=== PATIENT | female | born 1965 | race Caucasian/White ===

== ENCOUNTER → 2023-05-09 16:35 | Outpatient (REF) | payer BC, SELFPAY ==
[2023-05-09 17:29] LABS: % Basophils 0.4 % (0-2); % Eosinophils 0.2 % (0-6); % Immature Granulocytes 0.4 % (0-0.5); % Lymphocytes 25.1 % (20.5-51.1); % Monocytes 7.2 % (1.7-9.3); % Neutrophils 66.7 % (42.2-75.2); Absolute Lymphocytes 1.3 10^3/uL (1.2-3.4); Absolute Monocytes 0.4 10^3/uL (0.1-0.6); Absolute Neutrophils 3.3 10^3/uL (1.4-6.5); Hematocrit 40.2 % (37.0-47.0); Hemoglobin 13.4 g/dL (12.0-16.0); Mean Corp Hgb Conc. 33.3 g/dL (33.0-37.0); Mean Corpuscular Hgb 29.6 pg (27.0-31.0); Mean Corpuscular Volume 88.7 fL (81.0-99.0); Mean Platelet Volume 11.3 fL (7.4-10.4); Nucleated Red Blood Cells % 0 %; Platelet Count 242 10^3/uL (130-400); Red Blood Cell Count 4.53 10^6/uL (4.20-5.40); Red Cell Dist. Width 12.6 % (11.5-14.5)
[2023-05-09 17:37] LABS: D-Dimer 0.32 ug/mlFEU (0.00-0.50); Erythrocyte Sed Rate 13 mm/hour (0-20)
[2023-05-09 17:50] LABS: ALT (SGPT) 23 U/L (0-35); AST (SGOT) 29 U/L (14-36); Albumin 4.9 g/dl (3.5-5.0); Alkaline Phosphatase 61 U/L (38-126); Blood Urea Nitrogen 17 mg/dl (7-17); Calcium 10.4 mg/dl (8.4-10.2); Carbon Dioxide 28 mmol/L (22-30); Chloride 99 mmol/L (98-107); Glucose 96 mg/dl (70-99); Potassium 4.5 mmol/L (3.5-5.1); Sodium 137 mmol/L (135-145); Total Bilirubin 0.5 mg/dl (0.2-1.3); Total Protein 7.6 g/dl (6.3-8.2); eGFR > 60.00
== END ==
LOC: REG 16:35
PROVIDERS: ATTENDING PHYSICIAN Family Medicine
DX: R07.81 Pleurodynia (principal)
CPT/HCPCS: 36415; 71101; 80053; 85025; 85379; 85652

== ENCOUNTER → 2023-05-29 15:31 | Outpatient (REF) | payer BC, SELFPAY | LOC: RAD 15:31 | PROVIDERS: ATTENDING PHYSICIAN Family Medicine | DX: R07.9 Chest pain, unspecified (principal); M54.9 Dorsalgia, unspecified | CPT/HCPCS: 71250 ==

== ENCOUNTER → 2023-06-22 06:45 | Outpatient (REF) | payer BC, SELFPAY | LOC: MRI 3T 06:45 | PROVIDERS: ATTENDING PHYSICIAN Family Medicine | DX: M54.9 Dorsalgia, unspecified (principal); M54.12 Radiculopathy, cervical region | CPT/HCPCS: 72141; 72146 ==

== ENCOUNTER 2023-11-07 12:04 | Emergency (ER) | payer BC, SELFPAY ==
[2023-11-07 12:07] VITALS: BP 120/72
--- NOTE | 2023-11-07 12:51 | ED.GENMED ---
History of Present Illness
General
Chief Complaint: Musculo-Skeletal Complaint
Source: patient
Exam Limitations: none
Time Seen by Provider: 11/07/23 12:30
Nursing documentation reviewed up to this point in time: agreed with
History of Present Illness
History of Present Illness:
58-year-old female with a past medical history of hyperlipidemia presenting emergency department today with concerns of left lateral ankle pain. Patient states that this morning she was getting out of bed at around 3 or 4 AM this morning to use the
bathroom. Patient reports that when she was going back to bed, she turned off the lights and when she was trying to get back to her bed, she tripped twisted her ankle and fell. Patient states that she did not hit her head when she fell. Patient not
lose consciousness. Patient denies any other injuries, denies any upper extremity pain, denies any chest pain or shortness of breath. Denies any neck pain. Patient states that she is not able to bear weight on that side.
Past History
Past History
ED Past Medical History: None
ED Past Surgical History: None
Review of Systems
Review of Systems
All Other Systems: ROS reviewed and negative except as documented in HPI and ROS
Phy Exam
Physical Exam
Physical Exam:
General: Patient is well appearing and in no acute distress; non-toxic
Skin: Warm and dry, no rashes or lesions
Head: Normocephalic, atraumatic
Eyes: Sclera non-icteric. EOMs intact. PERRLA.
Cardiac: Regular rate
Peripheral Vascular: 2+ dorsalis pedis and posterior tibial pulses on the left
Pulm: Normal respiratory effort
Abdomen: No abdominal tenderness
Musculoskeletal: Swelling surrounding lateral malleolus with tenderness to palpation. No proximal fibular tenderness.
Neuro: CN II-XII intact, no focal neurologic deficits. Sensation intact.
Psychiatric: Appropriate mood and affect.
Course
Orders/Labs/Results
Orders:
Orders
11/07/23 12:11
CR Ankle - Left Min 3 Views Urgent
Comment:
Reason For Exam: injury, pain
11/07/23 12:49
Ibuprofen [Motrin] 600 mg PO NOW STA
Vital Signs
Initial and Last Documented VS:
Initial Vital Signs
Temp Pulse Resp BP Pulse Ox
97.6 F 80 16 120/72 99
11/07/23 12:07 11/07/23 12:07 11/07/23 12:07 11/07/23 12:07 11/07/23 12:07
Last Documented Vital Signs
Temp Pulse Resp BP Pulse Ox
97.6 F 80 16 120/72 99
11/07/23 12:07 11/07/23 12:07 11/07/23 12:07 11/07/23 12:07 11/07/23 12:07
Procedures
Splinting/Sling Placement
Left Ankle:
Procedure completed by: Vandana Joel PA-C, instrumentation tech
Pre-splint extermity exam: neurovascular intact
Type of splint: posterior short leg
Splint material: fiberglass
Splint checked by provider?: Yes
Normal distal neurovascular exam?: Yes
MDM/Problems Addressed
Differential Diagnosis Includes:
Deltoid ligament sprain/strain, anterior talofibular ligament sprain/strain, distal tibia fracture, distal fibula fracture
MDM/Problems Addressed:
58-year-old female presents emergency department following a trip and fall early this morning when she is getting up to use the bathroom. She has not able to bear weight on the left foot. She was found to have a distal fibula fracture on the left
with minimal displacement. She has no proximal fibular tenderness tenderness. She has swelling noted around the ankle. She was placed in a U short leg splint with posterior support. She is given ibuprofen for pain control. Patient saw
Amador in the past for hand surgery and would like to see him again, I did contact him however he mainly does upper extremities. Did contact [facility] medical management specialist he will see patient in a few days. Patient likely need surgery.
Patient states that she is unable to ambulate with crutches due to previous breast surgery, however she states that her is retired and will help her ambulate at home, I did write a prescription for a wheelchair. I did offer patient for
possible transfer to skilled rehab in the meantime so help with ambulation however patient declines this. Patient stable for discharge.
Chronic conditions affecting care:
Hyperlipidemia
Acute Exacerbation and/or Progression of Chronic Illness:
N/A
*Pulse Oximetry
Patient hypoxic: no
*Critical Care Note
Total Time (30-74mins, 75-104mins- exclusive of procedures): Not Applicable
Data Reviewed
Review of Other/Old Records Reveals: Records (Reviewed ER physician documentation from 07/25/2020)
Source: patient and records
Prescriptions/Medications Considered But Not Given:
Considered oxycodone and Percocet for pain control however patient states that she would rather use Tylenol Motrin
Patient Management
Escalation/DeEscalation of care consider admission/obs:
Admit not indicated, patient stable for discharge, reviewed case with my attending
ED Attending Note
-
Portions of this chart may have been created with voice recognition software.� Occasional wrong word or��sound alike� substitutions may have occurred due to the inherent limitations of voice recognition software.
Discharge Plan
Departure
Patient Disposition: Home (Routine Discharge)
Date of Disposition: 11/07/23
Time of Disposition: 14:33
Patient with high blood pressure during this ER visit?: No
Condition: Good
Discharge Problem:
Fracture of distal end of fibula
Instructions: Lower leg fracture, Splint Care
Prescriptions:
No Action
dextroamphetamine-amphetamine [Adderall XR] 30 MG capsule,extended release 24hr
30 mg PO DAILY
rosuvastatin 5 MG tablet
5 mg PO QPM
acetaminophen 325 MG tablet
650 mg PO Q4HPRN PRN (Reason: mild pain or temp > 100.4 F) 0RF
oxycodone 10 MG tablet
10 mg PO Q6HPRN PRN (Reason: mod sev pain) Qty: 15 0RF
vancomycin in 0.9 % sodium chl 1 GRAM/200 ML piggyback
1 g IV Q12H 0RF
Rx Instructions:
FOR CHARTING PURPOSE ONLY
Last dose on 08/13/20
naproxen 375 MG tablet
375 mg PO TID PRN (Reason: Breakthrough pain) Qty: 15 0RF
Rx Instructions:
Breakthrough afte using oxycodone.
amoxicillin-pot clavulanate 1 TABLET tablet
1 tab PO TID Qty: 42 0RF
Referrals:
Cristofer Candelaria DO [Family Provider] -
Rip Smart MD [Active] - Call in 1-3 days for appt
Activity Restrictions/Additional Instructions:
Please try to avoid weightbearing on the left foot. Please keep the splint in place until you see the orthopedist. Please do not get the splint wet.
Please call the attached number to schedule appointment with Dr. Smart's office with [facility].
Please return emergency department should you experience any acute worsening of your pain, loss of sensation in your lower extremity, pallor, or any other signs or symptoms concerning to you.
Interventions
Interventions:
*Risk Screen - Suicide Last Done: 11/07/23 12:07
*General Assessment Last Done: 11/07/23 12:07
*Neglect/Abuse Screening Last Done: 11/07/23 12:07
ED- Fall Risk Assessment Last Done: 11/07/23 15:30
*ED COVID-19 Vaccine History Last Done: 11/07/23 12:07
*Nursing Disposition Last Done: 11/07/23 15:31
ED-Musculoskeletal Assessment Last Done: 11/07/23 13:13
Discharge Date and Time
Discharge Date/Time: 11/07/23 15:34
Print Language: GUATEMALAN
[2023-11-07] MEDS: MOTRIN 600 MG PO (13:08)
== END 2023-11-07 15:34 | disposition home or self-care (01) ==
LOC: EMR 12:04
PROVIDERS: EMERGENCY PHYSICIAN Student in an Organized Health Care Education/Training Program; FAMILY PHYSICIAN Family Medicine
DX: S82.832A Other fracture of upper and lower end of left fibula, initial encounter for closed fracture (principal); W01.0XXA Fall on same level from slipping, tripping and stumbling without subsequent striking against object, initial encounter; E78.5 Hyperlipidemia, unspecified
CPT/HCPCS: 99283; 29515; 73610

== ENCOUNTER → 2023-11-10 09:39 | Outpatient (REF) | payer BC, SELFPAY ==
[2023-11-10 11:24] LABS: % Basophils 0.2 % (0-2); % Eosinophils 0.8 % (0-6); % Immature Granulocytes 0.2 % (0-0.5); % Lymphocytes 31.9 % (20.5-51.1); % Monocytes 8.4 % (1.7-9.3); % Neutrophils 58.5 % (42.2-75.2); Absolute Lymphocytes 1.5 10^3/uL (1.2-3.4); Absolute Monocytes 0.4 10^3/uL (0.1-0.6); Absolute Neutrophils 2.8 10^3/uL (1.4-6.5); Hematocrit 37.3 % (37.0-47.0); Hemoglobin 12.6 g/dL (12.0-16.0); Mean Corp Hgb Conc. 33.8 g/dL (33.0-37.0); Mean Corpuscular Hgb 29.5 pg (27.0-31.0); Mean Corpuscular Volume 87.4 fL (81.0-99.0); Mean Platelet Volume 11.3 fL (7.4-10.4); Nucleated Red Blood Cells % 0 %; Platelet Count 260 10^3/uL (130-400); Red Blood Cell Count 4.27 10^6/uL (4.20-5.40); Red Cell Dist. Width 12.6 % (11.5-14.5); White Blood Cell Count 4.8 10^3/uL (4.8-10.8)
== END ==
LOC: REG 09:39
PROVIDERS: ATTENDING PHYSICIAN Student in an Organized Health Care Education/Training Program; FAMILY PHYSICIAN Family Medicine
DX: Z01.818 Encounter for other preprocedural examination (principal)
CPT/HCPCS: 36415; 85025

== ENCOUNTER → 2023-12-29 08:46 | Outpatient (REF) | payer BC, SELFPAY ==
[2023-12-29 11:05] LABS: Blood Urea Nitrogen 21 mg/dl (7-17); Calcium 9.7 mg/dl (8.4-10.2); Carbon Dioxide 26 mmol/L (22-30); Chloride 102 mmol/L (98-107); Glucose 94 mg/dl (70-99); Potassium 4.4 mmol/L (3.5-5.1); Sodium 140 mmol/L (135-145); eGFR > 60.00
[2023-12-30 15:09] LABS: Intact PTH 56.9 pg/ml (13.6-85.8)
[2023-12-31 08:08] LABS: Zinc 91.2 ug/dL (60.0-120.0)
[2023-12-31 18:32] LABS: ds-DNA Ab, IgG Reflex To Titer 6 IU (0-24)
== END ==
LOC: REG 08:46
PROVIDERS: ATTENDING PHYSICIAN Family Medicine
DX: E78.5 Hyperlipidemia, unspecified (principal); R76.8 Other specified abnormal immunological findings in serum; L65.9 Nonscarring hair loss, unspecified; E83.52 Hypercalcemia
CPT/HCPCS: 36415; 80048; 83970; 84630; 86225

== ENCOUNTER → 2024-04-16 14:16 | Outpatient (REF) | payer BC, SELFPAY | LOC: WDC 14:16 | PROVIDERS: ATTENDING PHYSICIAN Family Medicine | DX: Z12.31 Encounter for screening mammogram for malignant neoplasm of breast (principal) | CPT/HCPCS: 77063; 77067 ==

== ENCOUNTER → 2024-10-25 14:40 | Outpatient (REF) | payer BC, SELFPAY | LOC: EMG 14:40 | PROVIDERS: ATTENDING PHYSICIAN Student in an Organized Health Care Education/Training Program; FAMILY PHYSICIAN Family Medicine | DX: R20.0 Anesthesia of skin (principal) | CPT/HCPCS: 95886; 95910 ==

== ENCOUNTER → 2025-02-10 12:41 | Outpatient (REF) | payer BC, SELFPAY ==
[2025-02-10 14:31] LABS: Urine Character Cloudy (Clear)
[2025-02-10 14:54] LABS: Urine Red Blood Cell 70-80 /HPF (0-2)
[2025-02-10 14:55] LABS: Urine White Cell 60-70 /HPF (0-5)
== END ==
LOC: REG 12:41
PROVIDERS: ATTENDING PHYSICIAN Obstetrics & Gynecology; FAMILY PHYSICIAN Family Medicine
DX: N39.0 Urinary tract infection, site not specified (principal)
CPT/HCPCS: 81003; 81015; 87077; 87086